=== PATIENT | male | born 1970 | race Caucasian/White ===

== ENCOUNTER → 2020-05-20 | Outpatient (CLI) | payer MEDICAID ==
[~2020-05-20] MED LIST: AMLO5TAB88 PO; ATOR10TA69 PO; BENA10TA75 PO; DOXA4TAB2 PO; TOPUD PO
== END | disposition home or self-care (01) ==
LOC: LAB 11:17
PROVIDERS: ATTEND Orthopaedic Surgery
DX: Z20.828 Contact with and (suspected) exposure to other viral communicable diseases (principal)
CPT/HCPCS: C9803; U0003

== ENCOUNTER 2020-05-23 05:31 | Day surgery (SDC) | payer MEDICAID ==
[~2020-05-23] VITALS: Ht 170.2 cm; Wt 131.5 kg
[~2020-05-23 05:31] MED LIST changes: +LACTATED RINGERS 1,000 ML IV SCH; -TOPUD PO
[2020-05-23] MEDS ORDERED: BACITRACIN 50,000 UNITS/VIAL ONE (06:27)
[2020-05-23] MEDS ORDERED: EPINEPHRINE 1:1000 1 MG/ML AMP ONE (06:27)
[2020-05-23] MEDS ORDERED: TOPUD PO (06:55)
[2020-05-23] MEDS ORDERED: FENTANYL CITRATE/PF 50MCG/ML 2ML VIAL ONE (07:36)
[2020-05-23] MEDS ORDERED: MIDAZOLAM HCL 2 MG/2 ML VIAL ONE (07:36)
[2020-05-23] MEDS ORDERED: LIDOCAINE HCL/PF 1% 10 MG/ML 5ML VIAL ONE (07:37)
[2020-05-23] MEDS ORDERED: ROCURONIUM BROMIDE 10MG/ML VIAL 5ML IV ONE (07:37)
[2020-05-23] MEDS ORDERED: CEFAZOLIN SODIUM 1000MG/VIAL ONE (07:37)
[2020-05-23] MEDS ORDERED: SUCCINYLCHOLINE CHLORIDE 200MG/10ML IV ONE (07:37)
[2020-05-23] MEDS ORDERED: PROPOFOL 200MG/20ML VIAL IV ONE (07:37)
[2020-05-23] MEDS ORDERED: SODIUM CHLORIDE 0.9% 10ML VIAL ONE ×2 (07:37→09:03)
[2020-05-23] MEDS ORDERED: EPHEDRINE SULFATE 50MG/ML VIAL ONE (09:03)
[2020-05-23] MEDS ORDERED: MORPHINE SULFATE/PF 1MG/ML 10ML AMP ONE (09:11)
[2020-05-23] MEDS ORDERED: METOCLOPRAMIDE HCL 10MG/2ML VIAL ONE (09:24)
[2020-05-23] MEDS ORDERED: DEXAMETHASONE 4MG/ML 1ML VIAL ONE (09:24)
[2020-05-23] MEDS ORDERED: ONDANSETRON HCL 4MG/2ML INJ ONE (09:24)
[2020-05-23] MEDS: HYDROMORPHONE HCL/PF 2MG/ML CPJ IV PRN ×2 (10:18→10:29)
[2020-05-23 10:29] VITALS: BP 117/53
[2020-05-23] MEDS ORDERED: HYDROCODONE/ACETAMINOPHEN 10/325MG TABLET PO PRN (10:30)
== END 2020-05-23 12:45 | disposition home or self-care (01) ==
LOC: OR 05:31
PROVIDERS: ATTEND Orthopaedic Surgery
DX: M94.261 Chondromalacia, right knee (principal); S83.241A Other tear of medial meniscus, current injury, right knee, initial encounter; M65.88 Other synovitis and tenosynovitis, other site; M23.91 Unspecified internal derangement of right knee; M79.89 Other specified soft tissue disorders; I10 Essential (primary) hypertension; E66.01 Morbid (severe) obesity due to excess calories; M19.90 Unspecified osteoarthritis, unspecified site; E78.00 Pure hypercholesterolemia, unspecified; N40.0 Benign prostatic hyperplasia without lower urinary tract symptoms; Z79.899 Other long term (current) drug therapy; Z98.890 Other specified postprocedural states; Z68.42 Body mass index [BMI] 45.0-49.9, adult; X58.XXXA Exposure to other specified factors, initial encounter; Y93.89 Activity, other specified; Y92.89 Other specified places as the place of occurrence of the external cause; Y99.8 Other external cause status
CPT/HCPCS: 29877; 88305; 88311; 97116; 97162; J0330; J0690; J1100; J1170; J2250; J2274; J2405; J2704; J2765; J3010; J3490